=== PATIENT | female | born 1950 | race Caucasian/White ===

== ENCOUNTER → 2017-02-01 | Outpatient (CLI) | payer OTHER ==
[~2017-02-01] MED LIST: ASPIRIN81 M1 PO; AZULFIDINE500 M1 PO; CALCIUM + D 6001 TA1 PO; DEPAKOTE PO; ENTOCORT3 MG PO; FOSAMAX70 M1 PO; GABAPENTIN400 MG PO; HYDR12.5C PO; HYDROCODONE BIT1 T11 PO; IMITREX PO; IRON90 MG PO; K LYTE PO; K-Dur 20MEQ20 MEQ PO; KEFLEX500 MG PO; KLORVESS EFFER20 ME1 PO; L-LYSINE500 M1 PO; LISINOPRIL10 MG PO; LODINE XL 400M400 MG PO; LOPID600 MG PO; MAGNESIUM OXID400 MG PO; MAGNESIUM500 MG PO; MOTRIN800 MG PO; NATURE'S BLEND F1 MG PO; NEXIUM40 MG PO; POTASSIUM99 M3 PO; PREDNICOT10 MG PO; QUESTRAN1 GM PO; SULFAZINE EC500 MG PO; VICODIN ES 7501 TAB PO; VISTARIL25 MG PO; VITAMIN A PO; VITAMIN A8000 IU PO; VITAMIN B122500 MCG PO; VITAMIN D31000 IU PO; VITAMIN E PO; VITAMIN E400 I1 PO; [UNRECOGNIZED DRUG - OTHER] PO
== END | disposition home or self-care (01) ==
LOC: LAB 09:22
DX: M25.562 Pain in left knee (principal)

== ENCOUNTER → 2017-03-08 | Outpatient (CLI) | payer OTHER | END | disposition home or self-care (01) | LOC: RAD 11:00 | DX: M81.0 Age-related osteoporosis without current pathological fracture (principal); Z78.0 Asymptomatic menopausal state; Z90.710 Acquired absence of both cervix and uterus ==

== ENCOUNTER → 2018-06-27 | Outpatient (CLI) | payer OTHER | END | disposition home or self-care (01) | LOC: RAD 16:57 | DX: J43.9 Emphysema, unspecified (principal); I10 Essential (primary) hypertension; F17.200 Nicotine dependence, unspecified, uncomplicated ==

== ENCOUNTER → 2019-11-18 | Outpatient (CLI) | payer OTHER | END | disposition home or self-care (01) | LOC: MAMMO 11-04 10:30 | DX: Z12.31 Encounter for screening mammogram for malignant neoplasm of breast (principal) ==

== ENCOUNTER → 2021-12-02 | Outpatient (CLI) | payer OTHER | END | disposition home or self-care (01) | LOC: US 09:25 | PROVIDERS: ATTEND Internal Medicine Nephrology | DX: N18.31 Chronic kidney disease, stage 3a (principal); N32.89 Other specified disorders of bladder; N28.1 Cyst of kidney, acquired ==

== ENCOUNTER → 2022-07-11 | Outpatient (CLI) | payer OTHER ==
[2022-07-11 12:38] LABS: BILIRUBIN 1+ (Negative); BLOOD 2+ (Negative); CLARITY Turbid (Clear); COLOR Dark Yellow (Yellow); GLUCOSE Negative (Negative); KETONE Trace (Negative); LEUKO ESTERASE 3+ (Negative); NITRITE Positive (Negative); SPECIFIC GRAVITY >= 1.030 (1.001-1.030)
[2022-07-11 12:48] LABS: WBC TNTC wbc/hpf (0-5)
[2022-07-11 12:53] LABS: URINE CREATININE RANDOM 307.82 mg/dL
[2022-07-11 12:56] LABS: POTASSIUM 3.9 mmol/L (3.4-5.1)
== END | disposition home or self-care (01) ==
LOC: LAB 12:05
PROVIDERS: ATTEND Internal Medicine Nephrology
DX: N18.31 Chronic kidney disease, stage 3a (principal); Z79.899 Other long term (current) drug therapy

== ENCOUNTER → 2022-08-17 | Outpatient (CLI) | payer OTHER ==
[2022-08-17 11:18] LABS: BILIRUBIN Negative (Negative); BLOOD Negative (Negative); CLARITY Clear (Clear); COLOR Yellow (Yellow); GLUCOSE Negative (Negative); KETONE Negative (Negative); LEUKO ESTERASE Trace (Negative); NITRITE Negative (Negative); PH 6.5 (4.5-8.0); SPECIFIC GRAVITY 1.015 (1.001-1.030); UROBILINOGEN 0.2 E.U./dl (0.0-1.0)
[2022-08-17 11:33] LABS: URINE CREATININE RANDOM 92.35 mg/dL
[2022-08-17 11:35] LABS: POTASSIUM 3.7 mmol/L (3.4-5.1)
[2022-08-17 11:42] LABS: BACTERIA 1+; EPITHELIAL CELLS 41-50; RBC 0-2 rbc/hpf (0-2)
== END | disposition home or self-care (01) ==
LOC: LAB 10:37
PROVIDERS: ATTEND Internal Medicine Nephrology
DX: N18.31 Chronic kidney disease, stage 3a (principal); Z79.899 Other long term (current) drug therapy

== ENCOUNTER → 2023-10-02 | Outpatient (CLI) | payer OTHER ==
[2023-10-02 09:52] LABS: BILIRUBIN Negative (Negative); BLOOD Negative (Negative); CLARITY Cloudy (Clear); COLOR Yellow (Yellow); GLUCOSE Negative (Negative); KETONE Negative (Negative); LEUKO ESTERASE 1+ (Negative); NITRITE Negative (Negative); PH 5.5 (4.5-8.0); SPECIFIC GRAVITY 1.015 (1.001-1.030); UROBILINOGEN 0.2 E.U./dl (0.0-1.0)
[2023-10-02 10:00] LABS: BACTERIA 1+; CALCIUM OXALATE CRYSTALS 3+
[2023-10-02 10:02] LABS: URINE CREATININE RANDOM 128.57 mg/dL
[2023-10-02 10:40] LABS: POTASSIUM 4.2 mmol/L (3.4-5.1)
== END ==
LOC: LAB 09:19
PROVIDERS: ATTEND Internal Medicine Nephrology
DX: N18.31 Chronic kidney disease, stage 3a (principal)